=== PATIENT | female | born 1980 | race Caucasian/White ===

== ENCOUNTER 2019-02-10 10:47 | Outpatient (CLI) | payer OTHER ==
[~2019-02-10] VITALS: Ht 160 cm; Wt 68.2 kg
[2019-02-10 11:04] VITALS: BP 110/63
== END 2019-02-10 12:58 | disposition home or self-care (01) ==
LOC: LDOP 10:47
PROVIDERS: ATTEND Obstetrics & Gynecology
DX: O09.523 Supervision of elderly multigravida, third trimester (principal); Z3A.38 38 weeks gestation of pregnancy
CPT/HCPCS: 59025; 76819; 99211; G0463

== ENCOUNTER 2019-02-15 20:26 | Inpatient (IN) | payer OTHER ==
[~2019-02-15] VITALS: Ht 160 cm; Wt 68.2 kg
[~2019-02-15 20:26] MED LIST: PREN1TAB60 PO
[2019-02-15 21:53] LABS: MICROSCOPIC NOT IND
[2019-02-15] MEDS ORDERED: METOCLOPRAMIDE 5 MG/ML, 2ML IVPush PRN (22:30)
[2019-02-15] MEDS ORDERED: D5%-LACTATED RINGERS 1,000 ML IV SCH (22:30)
[2019-02-15] MEDS ORDERED: OXYTOCIN 30U/ 0.9% NaCL 500ML 500 ML IV ONE (22:30)
[2019-02-15] MEDS ORDERED: FENTANYL PF 100 MCG/2ML IV PRN (22:30)
[2019-02-15] MEDS ORDERED: ONDANSETRON 2MG/ML, 2ML IVPush PRN (22:30)
[2019-02-15] MEDS ORDERED: CALCIUM CARBONATE 500 MG TAB.CHEW PO PRN (22:30)
[2019-02-15] MEDS ORDERED: TERBUTALINE 1 MG/ML, 1ML IVPush PRN (22:30)
[2019-02-15] MEDS ORDERED: FENTANYL PF 100 MCG/2ML IVPush PRN (22:30)
[2019-02-15] MEDS ORDERED: FENTANYL/BUPIV./NS/PF 250 ML EPIDCONT SCH (22:52)
[2019-02-15 22:57] LABS: BASOPHILS # (AUTO) 0.03 x10^3/uL (0-0.1); BASOPHILS % (AUTO) 0 % (0-1); EOSINOPHILS # (AUTO) 0.08 x10^3/uL (0-0.4); EOSINOPHILS % (AUTO) 1 % (1-7); LYMPHOCYTES % (AUTO) 22 % (22-44); MD NO; MEAN CORPUSCULAR HEMOGLOBIN 31.6 pg (27.0-34.8); MEAN CORPUSCULAR HGB CONC 32.9 g/dL (32.4-35.8); MEAN CORPUSCULAR VOLUME 96.1 fL (80-100); MEAN PLATELET VOLUME 8.8 fL (7.4-10.4); MONOCYTES # (AUTO) 0.71 x10^3/uL (0.2-0.8); MONOCYTES % (AUTO) 8 % (2-9); NEUTROPHILS # (AUTO) 5.85 x10^3/uL (1.8-6.8); NEUTROPHILS % (AUTO) 68 % (42-75); PLATELET COUNT 201 x10^3/uL (130-400); RED BLOOD COUNT 3.74 x10^6/uL (3.82-5.3); RED CELL DISTRIBUTION WIDTH 14.6 % (9.6-15.2)
[2019-02-15] MEDS ORDERED: FENTANYL PF 500 MCG, BUPIVACAINE/PF 0.5%, 30ML 62.5 ML in SODIUM CHLORIDE 0.9% 177.5 ML EPIDCONT SCH (23:00)
[2019-02-15] MEDS ORDERED: FENTANYL PF 100 MCG/2ML ONE (23:14)
[2019-02-15] MEDS: LACTATED RINGERS 1,000 ML IV SCH (23:16)
[2019-02-15] MEDS ORDERED: NEWBORN KIT ONE (23:25)
[2019-02-15] MEDS ORDERED: FENTANYL/BUPIV./NS/PF 250 ML EPIDCONT ONE (23:45)
[2019-02-15] MEDS ORDERED: BUPIVACAINE 0.25% ONE (23:56)
[2019-02-16] MEDS ORDERED: LIDOCAINE 1%, 20ML ONE (00:18)
[2019-02-16] MEDS ORDERED: MISOPROSTOL 200 MCG TABLET ONE (00:19)
[2019-02-16] MEDS ORDERED: OXYTOCIN 30U/ 0.9% NaCL 500ML 500 ML ONE ×2 (00:19→03:38)
[2019-02-16] MEDS: LACTATED RINGERS 1,000 ML IV SCH (01:34)
[2019-02-16] MEDS ORDERED: NEWBORN KIT ONE (02:01)
[2019-02-16] MEDS ORDERED: METHYLERGONOVINE 0.2 MG/ML IM PRN (02:30)
[2019-02-16] MEDS ORDERED: CARBOPROST TROMETHAMINE 250 MCG/ML, 1ML IM PRN (02:30)
[2019-02-16] MEDS ORDERED: OXYcodone/APAP 5/325MG TABLET PO PRN (02:30)
[2019-02-16] MEDS ORDERED: ONDANSETRON 2MG/ML, 2ML IV PRN (02:30)
[2019-02-16] MEDS ORDERED: OXYcodone IR 5MG TABLET PO PRN (02:30)
[2019-02-16] MEDS ORDERED: METOCLOPRAMIDE 5 MG/ML, 2ML IV PRN (02:30)
[2019-02-16] MEDS ORDERED: ACETAMINOPHEN 325 MG TABLET PO PRN (02:30)
[2019-02-16] MEDS ORDERED: MISOPROSTOL 200 MCG TABLET PR PRN (02:30)
[2019-02-16] MEDS ORDERED: IBUPROFEN 600 MG TABLET ONE (03:38)
[2019-02-16] MEDS: IBUPROFEN 600 MG TABLET PO PRN ×4 (03:46→22:33)
[2019-02-16] MEDS: OXYTOCIN 30U/ 0.9% NaCL 500ML 500 ML IV SCH ×3 (03:46→22:25)
[2019-02-16 04:40] VITALS: BP 111/73
[2019-02-16 08:00] VITALS: BP 110/68
[2019-02-16] MEDS: PRENATAL VIT/IRON/FA 1 EACH TABLET PO SCH (10:13)
[2019-02-16] MEDS: DOCUSATE 100 MG CAPSULE PO PRN ×2 (10:13→22:33)
[2019-02-16 10:53] LABS: BASOPHILS # (AUTO) 0.03 x10^3/uL (0-0.1); BASOPHILS % (AUTO) 0 % (0-1); EOSINOPHILS # (AUTO) 0.01 x10^3/uL (0-0.4); EOSINOPHILS % (AUTO) 0 % (1-7); LYMPHOCYTES % (AUTO) 11 % (22-44); MD NO; MEAN CORPUSCULAR HEMOGLOBIN 30.4 pg (27.0-34.8); MEAN CORPUSCULAR VOLUME 95.1 fL (80-100); MEAN PLATELET VOLUME 8.6 fL (7.4-10.4); MONOCYTES # (AUTO) 0.65 x10^3/uL (0.2-0.8); MONOCYTES % (AUTO) 7 % (2-9); NEUTROPHILS % (AUTO) 82 % (42-75); PLATELET COUNT 161 x10^3/uL (130-400); RED BLOOD COUNT 3.73 x10^6/uL (3.82-5.3); RED CELL DISTRIBUTION WIDTH 13.9 % (9.6-15.2)
[2019-02-16 12:15] VITALS: BP 113/70
[2019-02-16 15:55] VITALS: BP 114/74
[2019-02-16 19:50] VITALS: BP 116/78
[2019-02-17 02:20] VITALS: BP 109/73
[2019-02-17 07:25] VITALS: BP 111/73
[2019-02-17] MEDS: IBUPROFEN 600 MG TABLET PO PRN (07:46)
[2019-02-17] MEDS: PRENATAL VIT/IRON/FA 1 EACH TABLET PO SCH (07:46)
[2019-02-17] MEDS: DOCUSATE 100 MG CAPSULE PO PRN (07:46)
[2019-02-17] MEDS: OXYTOCIN 30U/ 0.9% NaCL 500ML 500 ML IV SCH (08:25)
== END 2019-02-17 11:27 | disposition home or self-care (01) | DRG 807 ==
LOC: LDOP 20:26 → LDIP 22:32 → 2NW 02-16 04:20
PROVIDERS: ADMIT Obstetrics & Gynecology; ATTEND Obstetrics & Gynecology
PROC: 10E0XZZ Delivery of Products of Conception, External Approach (ICD-10-PCS; principal; 2019-02-16)
PROC: 10907ZC Drainage of Amniotic Fluid, Therapeutic from Products of Conception, Via Natural or Artificial Opening (ICD-10-PCS; 2019-02-16)
PROC: 0HQ9XZZ Repair Perineum Skin, External Approach (ICD-10-PCS; 2019-02-16)
PROC: 3E0R3BZ Introduction of Anesthetic Agent into Spinal Canal, Percutaneous Approach (ICD-10-PCS; 2019-02-16)
PROC: 00HU33Z Insertion of Infusion Device into Spinal Canal, Percutaneous Approach (ICD-10-PCS; 2019-02-16)
DX: O36.5930 Maternal care for other known or suspected poor fetal growth, third trimester, not applicable or unspecified (principal); Z37.0 Single live birth; O70.0 First degree perineal laceration during delivery; Z3A.38 38 weeks gestation of pregnancy
CPT/HCPCS: 36415; 81003; 85025; 86850; 86900; 87086; G0378; J3010; J2590; J7120